=== PATIENT | female | born 1970 | race Asian ===

== ENCOUNTER 2017-09-13 21:12 | Emergency (ER) | payer BC ==
[2017-09-13 21:24] VITALS: BP 130/88
--- NOTE | 2017-09-13 21:46 | EDPHY ---
H & P Stated Complaint: Right foot swelling with possible bug bite Time Seen by Provider: 09/13/17 21:44 HPI/ROS: HPI: This is a 47-year-old female who presents with Chief Complaint: Right foot swelling with possible bug bite Location: Right foot Quality: swelling Duration: 24 hr Signs and Symptoms: No bleeding, no radiation, no numbness, no weakness, no tingling, no incontinence, no decreased range of motion, + swelling, no pain, no fever, + redness Timing: Worsening Severity: Moderate Context: Patient believes that she got bit on the right foot medial aspect yesterday afternoon. Over the last 24 hr the site has increased in redness, warmth and tenderness. She denies any difficulty breathing, pruritus, drainage , radiation, weakness. She has tried nothing for the symptoms. LMP 1-7 days ago Modifying Factors: None Comment: ROS: see HPI Constitutional: No fever, no chills, no weight loss Eyes: No blurred vision Respiratory: No shortness of breath, no cough Cardiovascular: No chest pain Gastrointestinal: No nausea, no vomiting no diarrhea Genitourinary: No dysuria Extremities: No myalgias Neurologic: No weakness, no numbness Skin: No rashes Hematologic: No bruising, no bleeding MEDICAL/SURGICAL/SOCIAL HISTORY: Medical history: Generally healthy. Does not take any regular medications. Surgical history: Denies Social history: Never smoked. CONSTITUTIONAL: Extremely well-appearing polite female, awake and alert, no obvious distress HEENT: Atraumatic and normocephalic. EXTREMITIES: 2/2 pulses, strength 5/5, right Ankle: Plantar flexion to 50, dorsiflexion to 20. Foot inversion to 35 degree. No tenderness/swelling Anterior talofibular ligament. No tenderness/swelling Calcaneofibular ligament , no tenderness/swelling posterior talofibular ligament, no tenderness/swelling posterior inferior tibiofibular ligament. Achilles tendon intact. Top of right show foot shows 4 in area with raised wheal like to bite on the right medial aspect at the MTP joint that is consistent with a bite of some kind. There is [id number] erythema, swelling, warmth. No discharge appreciated. No fluctuance appreciated. DIP/PIP/MCP flexion/extension intact with good light touch sensation. no deformities, no clubbing, no cyanosis or edema. NEUROLOGICAL: no focal neuro deficits. GCS 15. Light touch sensation intact. SKIN: Warm and dry, no erythema. no rash. Good capillary refill. Source: Patient Exam Limitations: No limitations - Personal History LMP (Females 10-55): 1-7 Days Ago Current Tetanus Diphtheria and Acellular Pertussis (TDAP): Unsure - Medical/Surgical History Hx Asthma: No Hx Chronic Respiratory Disease: No Hx Diabetes: No Hx Cardiac Disease: No Hx Renal Disease: No Hx Cirrhosis: No Hx Alcoholism: No Hx HIV/AIDS: No Hx Splenectomy or Spleen Trauma: No - Social History Smoking Status: Never smoked Constitutional: Initial Vital Signs Temperature (C) 36.8 C 09/13/17 21:21 Heart Rate 59 L 09/13/17 21:21 Respiratory Rate 20 09/13/17 21:21 Blood Pressure 130/88 H 09/13/17 21:21 O2 Sat (%) 99 09/13/17 21:21 Allergies/Adverse Reactions: mosquitos bite Allergy (Uncoded 09/13/17 21:21) Home Medications: Medication Instructions Recorded Cephalexin [Keflex (*)] 500 mg PO QID #28 cap 09/13/17 predniSONE [predniSONE TAPER] 10 mg PO DAILY 6 Days ea 09/13/17 Medical Decision Making ED Course/Re-evaluation: Patient given Keflex and prednisone 60 mg in the ER. No fluctuance to I and D. No signs of neurovascular compromise/tenting of skin/compartment syndrome/ extremities and joints examined above and below area of concern and are neurovascularly intact/septic arthritis/angioedema/anaphylaxis. Patient advised to take Benadryl, elevate, cool compresses, Keflex, prednisone taper This patient was seen under the supervision of my secondary supervising physician. I evaluated care for this patient independently. Discussed this patient with Dr. Santoyo. Differential Diagnosis: Differential diagnosis includes but is not limited to cellulitis, abscess, tenosynovitis, septic arthritis, gouty arthropathy. Departure - Departure Disposition: Home, Routine, Self-Care Clinical Impression: Infected insect bite of right foot Qualifiers: Encounter type: initial encounter Qualified Code(s): S90.861A - Insect bite ( nonvenomous), right foot, initial encounter Condition: Good Instructions: Cellulitis (ED), Insect Bite or Sting (ED) Additional Instructions: Wash the site daily with mild soap and water; then pat dry. Take Tylenol 650 mg every 4 hours and/or Ibuprofen 600 mg every 8 hours with food as needed for pain. Take Keflex 4 times a day for the next 7 days. Take steroid taper as directed. Take Benadryl 25-50 mg every 4-6 hours as needed for itching, allergic reaction. Apply ice for 30 minutes at a time; 2-3 times per day for the next 1-2 days. Please limit the use of your right foot as much as possible over the next 24-48 hours. Return to the ER immediately if you experience redness, red streaks, have fevers /chills, flu like symptoms, limited range of motion, or any other symptoms that concern you. Referrals: PCP Not In,Dictionary [Medical Doctor] - As per Instructions Prescriptions: Cephalexin [Keflex (*)] 500 mg PO QID #28 cap predniSONE [predniSONE TAPER] 10 mg PO DAILY 6 Days ea
[2017-09-13] MEDS ORDERED: predniSONE 20 MG TAB PO ONE (21:53)
[2017-09-13] MEDS ORDERED: CEPHALEXIN 500MG PREPACK#4 BTL TAKEHOME ONE (21:53)
== END 2017-09-13 22:13 | disposition home or self-care (01) ==
DX: S90.861A Insect bite (nonvenomous), right foot, initial encounter (principal); W57.XXXA Bitten or stung by nonvenomous insect and other nonvenomous arthropods, initial encounter
CPT/HCPCS: J7512